=== PATIENT | male | born 1945 | race Caucasian/White ===

== ENCOUNTER 2016-12-14 11:34 | Emergency (ER) | payer OTHER | END 2016-12-14 12:50 | disposition home or self-care (01) | LOC: FER 11:34 | DX: Z48.02 Encounter for removal of sutures (principal); L02.413 Cutaneous abscess of right upper limb; I10 Essential (primary) hypertension; Z95.1 Presence of aortocoronary bypass graft; Z79.82 Long term (current) use of aspirin; Z79.899 Other long term (current) drug therapy | CPT/HCPCS: 87070; 87205; 99283 ==

== ENCOUNTER 2017-03-23 16:18 | Emergency (ER) | payer OTHER ==
[2017-03-23 16:36] LABS: BASOPHIL 0.3 % (0-2); EOSINOPHIL 0.4 % (0-7); HCT 39.6 % (42.0-52.0); HGB 14.2 g/dl (13.2-18.0); LYMPHOCYTE 39.7 % (15-48); MCH 30.6 pg (25.0-31.0); MCHC 35.9 g/dL (32.0-36.0); MCV 85.3 fL (78.0-100.0); MONOCYTE 12.4 % (0-12); MPV 8.3 fL (6.0-9.5); NEUTROPHIL 47.2 % (41-80); PLT 290 K/uL (150-400); RBC 4.64 M/uL (4.70-6.00); RDW 12.8 % (11.5-14.0); WBC 7.9 K/uL (4.0-10.5)
[2017-03-23 16:52] LABS: INR 1.08 (0.9-1.2); PROTHROMBIN TIME 13.6 SECONDS (11.7-14.0); PTT 27.6 SECONDS (23.2-31.4)
[2017-03-23 17:00] LABS: CKMB 2.49 ng/mL (0.97-4.94); MYOGLOBIN 50 ng/mL (26-65); TROPONIN T < 0.010 ng/mL
[2017-03-23 17:01] LABS: PRO-BNP 308 pg/mL (0-125)
[2017-03-23 17:55] LABS: ALBUMIN 4.2 g/dL (3.4-4.8); BILIRUBIN - TOTAL 1.8 mg/dL (0.1-1.0); CREATININE 1.2 mg/dL (0.7-1.2); GLOBULIN (CALCULATION) 2.5 g/dL (2.2-4.2); MAGNESIUM 1.83 mg/dL (1.40-2.10); POTASSIUM 4.1 mmol/L (3.5-5.1); TOTAL PROTEIN 6.7 g/dL (6.4-8.3)
== END 2017-03-23 18:26 | disposition other institution (70) ==
LOC: FER 16:18
PROVIDERS: Emergency Medicine
DX: R07.9 Chest pain, unspecified (principal); R11.0 Nausea; I25.810 Atherosclerosis of coronary artery bypass graft(s) without angina pectoris; Z82.49 Family history of ischemic heart disease and other diseases of the circulatory system; Z79.82 Long term (current) use of aspirin; Z79.899 Other long term (current) drug therapy; Z95.1 Presence of aortocoronary bypass graft
CPT/HCPCS: 36415; 71010; 80053; 82550; 82553; 83735; 83874; 83880; 84484; 85025; 85610; 85730; 93005; J1644; J2270

== ENCOUNTER → 2021-07-29 | Day surgery (SDC) | payer OTHER ==
[~2021-07-29] VITALS: Ht 188 cm; Wt 100.7 kg
[~2021-07-29] MED LIST: ASPIRIN EC81 MG PO; ATORVASTATIN CA80 MG PO; NITROGLYCERIN1 EAC1 TD; NITROQUIK SL0.4 MG SL; OS-CAL500 MG PO; PLAVIX75 MG PO; RANEXA1000 MG PO; ZOFRAN4 MG PO
== END | disposition home or self-care (01) ==
LOC: FAS 08:04
DX: Z12.11 Encounter for screening for malignant neoplasm of colon (principal); D12.5 Benign neoplasm of sigmoid colon; D12.3 Benign neoplasm of transverse colon; K31.9 Disease of stomach and duodenum, unspecified; K22.2 Esophageal obstruction; R13.10 Dysphagia, unspecified; K29.50 Unspecified chronic gastritis without bleeding; K57.30 Diverticulosis of large intestine without perforation or abscess without bleeding; I11.0 Hypertensive heart disease with heart failure; I50.9 Heart failure, unspecified; I25.10 Atherosclerotic heart disease of native coronary artery without angina pectoris; E78.00 Pure hypercholesterolemia, unspecified; F41.9 Anxiety disorder, unspecified; Z95.0 Presence of cardiac pacemaker; Z95.1 Presence of aortocoronary bypass graft; Z95.818 Presence of other cardiac implants and grafts; Z79.82 Long term (current) use of aspirin; Z79.899 Other long term (current) drug therapy
CPT/HCPCS: 93005; J1610; J2250; J2704; J7120

== ENCOUNTER 2021-12-16 13:50 | Emergency (ER) | payer OTHER | END 2021-12-16 15:35 | disposition home or self-care (01) | LOC: FER 13:50 | DX: S60.212A Contusion of left wrist, initial encounter (principal); W11.XXXA Fall on and from ladder, initial encounter; Y92.009 Unspecified place in unspecified non-institutional (private) residence as the place of occurrence of the external cause | CPT/HCPCS: 73110 ==